=== PATIENT | female | born 1960 | race African-American/Black ===

== ENCOUNTER 2023-01-30 19:53 | Emergency (ER) | payer OTHER, MEDICARE, SELFPAY ==
[2023-01-30] VITALS (17 sets, daily range): BP systolic 116–189; BP diastolic 62–109; PULSE 60; RESP 22; TEMP 36.6; O2SAT 99
--- NOTE | ~2023-01-30 | XR_ITS ---
EXAM: XR pelvis 1-2V DATE: 01/30/2023 21:32 HISTORY: Fell in bathtub, posterior pain . COMPARISON: None available. FINDINGS: Normal mineralization. No fracture or dislocation. No lytic or blastic lesion. Joint space s are maintained. No erosion or periosteal change. Phleboliths. Atherosclerotic calcifications. IMPRESSION: No acute osseous finding in the pelvis. Reviewed, dictated and finalized at location K.
--- NOTE | ~2023-01-30 | CT_ITS ---
EXAMINATION: CT thoracic lumbar wo con DATE: 01/30/2023 21:19 INDICATION: Fall . TECHNIQUE: Computed tomography (CT) of the thoracic and lumbar spine was performed without intravenou s contrast. The dose-length product was 1529.60 mGy-cm. COMPARISON: None FINDINGS: THORACIC SPINE: Vertebral body alignment intact. Superior end plate deformity and mild wedge deformity in the superio r aspect of T12, without involvement of the posterior cortex. Remaining vertebral body heights are ma intained. Mild multilevel degenerative disc disease.. T8 hemangioma. No traumatic malalignment or fra cture. Visualized lung parenchyma is clear. Atherosclerotic calcifications. Dependent groundglass tim cifications. 11 mm groundglass nodule in the left upper lobe. 6 cm solid pulmonary nodule in the righ t upper lobe. 10.5 mm pulmonary nodule in the left lower lobe. Nonobstructing right midpole calcifica tion. LUMBAR SPINE: 5 nonrib-bearing lumbar-type vertebral bodies. Pedicles intact. Normal vertebral body alignment. Vert ebral body heights preserved. Mild multilevel degenerative disc disease and facet arthropathy. IMPRESSION: 1. Mild wedge compression fracture at T12. No other acute osseous finding. 2. Multiple pulmonary nodules including subsolid and solid types, recommend timely outpatient low-dos e noncontrast CT of the chest. Reviewed, dictated and finalized at location K. IMPRESSION: 1. Mild wedge compression fracture at T12. No other acute osseous finding. 2. Multiple pulmonary nodules including subsolid and solid types, recommend helio sugar outpatient low-dose noncontrast CT of the chest.
--- NOTE | ~2023-01-30 | XR_ITS ---
EXAMINATION: XR chest 1V Exam Date/Time: 01/30/2023 21:24 CDT HISTORY: Fell in bathtub, sob. Hx htn Comparison: CT thoracic and lumbar spine, same date. RESULT: Lines, tubes, and devices: None. Lungs and pleura: No focal consolidation, pneumothorax, or effusion. 11 mm right lower lobe pulmonar y nodule, additional nodules seen by CT are not visualized radiographically. Prior CT recommendations are unchanged. Mild diffuse reticular opacities. Dependent atelectasis. Cardiomediastinal silhouette: Stable. Arch calcification. Other: No acute osseous or upper abdominal finding. IMPRESSION: Mild interstitial edema. Reviewed, dictated and finalized at location K. IMPRESSION: Mild interstitial edema.
--- NOTE | 2023-01-30 21:24 | ED.GENADULT ---
HPI - General Adult General Chief complaint: Fall Stated complaint: ABD & BACK PAIN S/P GLF Time Seen by Provider: 01/30/23 20:20 History of Present Illness HPI narrative: This is a 62-year-old female who slipped in the shower and fell backwards landing flat on her back. This that time she experienced severe pain. She was able to crawl back to her bedroom get in bed. She at that point she called EMS. patient denies numbness tingling or weakness to her lower extremities. She does associate the pain with some shortness of breath. Treated trigger headache she noted blood thinners. No other injuries. Related Data Allergies Allergy/AdvReac Type Severity Reaction Status Date / Time Penicillins Allergy Dyspnea / Verified 01/30/23 20:10 SOB PMFSH Past Medical History Medical History Hyperlipidemia Hypertension Surgical History Surgical History Total knee replacement status Exam Narrative: APPEARANCE: No apparent distress. Head: atraumatic. EYES: EOMI, NOSE: Atraumatic NECK: Trachea midline RESPIRATORY: No increased rate of breathing, clear to auscultation CARDIOVASCULAR: RRR, ABDOMINAL: Non-distended, soft no guarding rebound MUSCULOSKELETAl: Midline L-spine tenderness,, no step-offs, no bruising NEURO: Alert. Moving 4/4 extremities, sensation light touch cerebellar function intact in lower extremities SKIN:: Warm, dry. Normal color PSYCHIATRIC: Normal affect Course Vital Signs Vital signs: Vital Signs Temperature 98 F 01/30/23 19:52 Pulse Rate 60 01/30/23 19:52 Respiratory Rate 22 H 01/30/23 19:52 Blood Pressure 172/82 H 01/30/23 19:52 Pulse Oximetry 99 01/30/23 19:52 Oxygen Delivery Room Air 01/30/23 19:52 Temperature 98 F 01/30/23 19:52 Pulse Rate 60 01/30/23 19:52 Respiratory Rate 22 H 01/30/23 19:52 Blood Pressure 172/82 H 01/30/23 19:52 Pulse Oximetry 99 01/30/23 19:52 Oxygen Delivery Room Air 01/30/23 19:52 Medical Decision Making [facility] Narrative Medical decision making narrative: -Presentation: 62-year-old female presenting after a ground level fall in her back with severe lower back pain and difficulty breathing. 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 Mild wedge compression fracture at T12. No other acute osseous finding. 2. Multiple pulmonary nodules including subsolid and solid types, recommend timely outpatient low-dose noncontrast CT of the chest. Patient has no evidence of spinal cord compression or neurologic weakness in the lower extremities. We will attempt to get her pain under control and ambulate her. Chest x-ray showed mild interstitial edema. Pelvic x-ray was unremarkable. Dx tests considered but not ordered: -Procedures: -Interventions: Motrin, Tylenol, Robaxin -Shared decision making / Disposition: Upon re-evaluation the patient was able to ambulate after pain medications. She has no neurologic deficits. She will be given referral to primary care and Neurosurgery. She was offered narcotic pain medication but refused as she is a recovering addict. -RX Motrin, Tylenol, Robaxin Vital Signs Vital Signs: Vital Signs Temperature 98 F 01/30/23 19:52 Pulse Rate 60 01/30/23 19:52 Respiratory Rate 22 H 01/30/23 19:52 Blood Pressure 172/82 H 01/30/23 19:52 Pulse Oximetry 99 01/30/23 19:52 Oxygen Delivery Room Air 01/30/23 19:52 Temperature 98 F 01/30/23 19:52 Pulse Rate 60 01/30/23 19:5
[2023-01-30] MEDS: methocarbamoL 750 MG TABLET 1500 MG PO (21:35)
[2023-01-30] MEDS: ACETAMINOPHEN 500 MG TABLET 1000 MG PO (21:35)
[2023-01-30] MEDS: IBUPROFEN 400 MG TABLET 800 MG PO (21:35)
== END 2023-01-31 00:08 | disposition home or self-care (01) ==
PROVIDERS: Emergency Provider Emergency Medicine
DX: S22.080A Wedge compression fracture of T11-T12 vertebra, initial encounter for closed fracture (principal); E78.5 Hyperlipidemia, unspecified; I10 Essential (primary) hypertension; R91.8 Other nonspecific abnormal finding of lung field; Z96.659 Presence of unspecified artificial knee joint; W18.2XXA Fall in (into) shower or empty bathtub, initial encounter
CPT/HCPCS: 71045; 72128; 72131; 72170; 99284; A9270